=== PATIENT | female | born 1970 | race Caucasian/White ===

== ENCOUNTER 2022-12-22 09:13 | Day surgery (SDC) | payer OTHER ==
[~2022-12-22 09:13] MED LIST: DEXAMETHASONE SOD PHOSPHATE 4 MG/ML 1 ML VIAL IV ONE; HYDROmorphone 0.5 MG/0.5 ML SYRINGE IVP PRN; LACTATED RINGERS 1,000 ML IV SCH; LIDOCAINE 1% (10MG/ML) FOR IV START INTRADERMA PRN; MIDAZOLAM 2 MG/2 ML VIAL IV PRN; ONDANSETRON 4 MG/2 ML VIAL IVP ONE
[2022-12-22] MEDS ORDERED: SCOPOLAMINE 1 MG/72 HR PATCH TRANSDERM ONE (10:22)
[2022-12-22] MEDS ORDERED: DEXAMETHASONE SOD PHOSPHATE 4 MG/ML 1 ML VIAL IVP ONE (10:29)
[2022-12-22] MEDS ORDERED: ONDANSETRON 4 MG/2 ML VIAL IVP ONE (10:29)
[2022-12-22 10:37] LABS: Basophils # (A) 0.1 k/uL (0-0.2); Basophils % (A) 1 %; Eosinophils # (A) 0.4 k/uL (0-0.7); Eosinophils % (A) 3 %; HCT 42.7 % (34.0-46.0); HGB 14.5 gm/dL (11.4-16.0); Lymphocytes # (A) 1.4 k/uL (1.0-4.8); Lymphocytes % (A) 12 %; MCV 82.4 fL (80.0-100.0); Mean Platelet Volume 7.2; Monocytes # (A) 0.6 k/uL (0-1.0); Monocytes % (A) 5 %; Neutrophils # (A) 9.3 k/uL (1.3-7.7); Neutrophils % (A) 79 %; Platelet Count 493 k/uL (150-450); RBC 5.17 m/uL (3.80-5.40); RDW 13.3 % (11.5-15.5); WBC 11.7 k/uL (3.8-10.6)
[2022-12-22 10:46] LABS: ALT 16 U/L (4-34); AST 24 U/L (14-36); African American GFR (CKD) >90 (>60 ml/min/1.73 sqM); Albumin 4.3 g/dL (3.5-5.0); Alkaline Phosphatase 99 U/L (38-126); Anion Gap 12 mmol/L; Blood Urea Nitrogen 14 mg/dL (7-17); Calcium 9.9 mg/dL (8.4-10.2); Carbon Dioxide 20 mmol/L (22-30); Chloride 103 mmol/L (98-107); Glucose 140 mg/dL (74-99); Non-African American GFR(CKD) >90 (>60 ml/min/1.73 sqM); Sodium 135 mmol/L (137-145); Total Bilirubin 0.6 mg/dL (0.2-1.3); Total Protein 7.7 g/dL (6.3-8.2)
[2022-12-22 10:57] LABS: Potassium 4.9 mmol/L (3.5-5.1)
[2022-12-22] MEDS ORDERED: HYDROmorphone (PF) 1 MG/ML ONE (11:53)
[2022-12-22] MEDS ORDERED: PROPOFOL 10 MG/ML 20 ML VIAL IV ONE (11:53)
[2022-12-22] MEDS ORDERED: diphenhydrAMINE 50 MG/ML 1 ML VIAL ONE (11:53)
[2022-12-22] MEDS ORDERED: fentaNYL (PF) 50 MCG/ML 2 ML AMP ONE (11:53)
[2022-12-22] MEDS ORDERED: ceFAZolin 1,000 MG VIAL ONE (11:53)
[2022-12-22] MEDS ORDERED: LIDOCAINE 1% INJ 10MG/ML (20 ML MDV) ONE (11:53)
[2022-12-22] MEDS ORDERED: SODIUM CHLORIDE 0.9% 100 ML BAG ONE (11:53)
[2022-12-22] MEDS ORDERED: SUCCINYLCHOLINE CHLORIDE 200 MG/10 ML VIAL IV ONE ×2 (11:53)
[2022-12-22] MEDS ORDERED: MIDAZOLAM 2 MG/2 ML VIAL ONE (11:53)
[2022-12-22] MEDS ORDERED: SODIUM CHLORIDE 0.9% 100 ML with ceFAZolin 2,000 MG IV ONE ×2 (11:58)
[2022-12-22] MEDS ORDERED: BACITRACIN ZINC 500 UNIT/GM OINT 28.4 GM TUBE TOPICAL ONE (12:43)
[2022-12-22] MEDS ORDERED: LACTATED RINGERS 1,000 ML IV ONE (13:04)
[2022-12-22 13:41] VITALS: TEMP 97.3
[2022-12-22] MEDS ORDERED: droPERidol 5 MG/2 ML VIAL IVP ONE (14:32)
[2022-12-22] MEDS ORDERED: HYDROcodone/APAP 7.5-325MG 1 EACH TAB ONE (16:55)
[2022-12-22] MEDS ORDERED: HYDROcodone/APAP 7.5-325MG 1 EACH TAB PO ONE (16:56)
[2022-12-22 17:15] VITALS: BP 126/83; PULSE 99; RESP 18
--- NOTE | 2022-12-22 20:17 | OP ---
OPERATIVE REPORT DATE OF SERVICE : 12/22/2022 PREOPERATIVE DIAGNOSES: 1. Postoperative infection, right and left reconstructed breasts with open wounds. 2. Personal history of breast cancer. 3. Acquired absence, right and left breasts. POSTOPERATIVE DIAGNOSES: 1. Postoperative infection of reconstructed right and left breasts with open wounds. 2. Breast cancer. 3. Personal history of bilateral mastectomy. OPERATIVE PROCEDURES: 1. Removal of right reconstructed breast tissue wind field manager. 2. Removal of left reconstructed breast tissue wind field manager. 3. Excision, open right and left breast wounds, with complex wound repair, 27 cm length. OPERATIVE INDICATIONS: The patient is a 52-year-old female, who underwent bilateral mastectomy procedures on December 03, 2022. The patient elected to proceed with immediate reconstruction following her mastectomies with insertion of tissue expanders. The patient was seen and evaluated in consultation for these procedures and had a past history of left-sided breast cancer with radiation treatments. She was aware of potential added risk to the surgery due to that history. The patient's postoperative course was soren, and she developed skin changes involving the left breast first and later the right, associated with drainage. She was seen in the office, and cultures were obtained. They have shown gram-negative organisms. The patient has been counseled to undergo removal of her expanders with excision of the wound sites and placement of drains for treatment at this time. She is aware of potential future reconstructive surgical options. She has requested I perform the surgery. OPERATIVE PROCEDURE SUMMARY: The patient was seen and evaluated in the preoperative area, markings were made, procedure was reviewed, and all questions were answered. She was transported to the operative room, where she was placed in supine position. Following induction of general anesthesia, the patient was prepped and draped in usual fashion. Beginning on the right side, the wound site was outlined along the mastectomy scar inferomedially. The mastectomy scar was excised along with the open wound using 10-blade scalpel sending the excised tissue to Pathology. The graft layer was exposed, and the graft was easily from the mastectomy skin flaps. These expanders were secured with suture tabs/sutures, which were released with scissors. The wind field manager and graft material were removed. The cavity had some granulation tissue, but no exudate, and only a small amount of fluid. The cavity was packed open with moistened laparotomy sponges. Attention was turned towards the left side. The wound site and skin necrosis were larger in this area along with exposure of the graft. The wound and mastectomy scar were outlined with a skin marker, and then the tissue was excised sending the excised tissue to Pathology. Again, the graft that had incorporated into the mastectomy skin flaps was easily by digital manipulation. The sutures placed at the suture tabs securing the wind field manager to the chest wall were released with scissors, and the wind field manager and graft material were removed intact. The cavity demonstrated granulation tissue, no exudates, and approximately 50 mL of serous fluid that was cloudy. Both sites were now irrigated with copious amounts of saline using several liters in pulsatile irrigation system. Hemostasis was maintained with cautery on each side. A 19-round Jos drains were inserted in the right and left reconstructed cavities and brought out through separate stab incisions on the right and left anterolateral chest wall and sutured in place with 2-0 Prolene. The drains were cut to appropriate length. The wound sites were now closed approximating the deep dermis using inverted interrupted 4-0 Monocryl followed by closure of superficial dermis and epidermis with molina. The length of the repair on the right side was 14 cm and for the left 13 cm. The surgical oneil were now cleansed with saline and dried, and postoperative bandages were placed using bacitracin ointment, 4 x 4's, Kerlix gauze that was folded over to create large pads followed by ABD pads, all secured with 3M Medipore tape. Drain sponges were placed and secured with tape as well. Drains were connected to close bulb suction and patent. The patient was then awakened from her anesthetic, extubated in the operating room, and transferred to the recovery room in good condition with stable vital signs. ESTIMATED BLOOD LOSS: 75 mL. COMPLICATIONS: There were no complications. MMODL / IJN: [id number] /
== END 2022-12-22 17:23 | disposition home or self-care (01) ==
LOC: OR 09:13
PROVIDERS: ATTEND Plastic Surgery
DX: T85.49XA Other mechanical complication of breast prosthesis and implant, initial encounter (principal); L90.5 Scar conditions and fibrosis of skin; S21.001A Unspecified open wound of right breast, initial encounter; S21.002A Unspecified open wound of left breast, initial encounter; Z85.3 Personal history of malignant neoplasm of breast; Z90.13 Acquired absence of bilateral breasts and nipples; Y83.8 Other surgical procedures as the cause of abnormal reaction of the patient, or of later complication, without mention of misadventure at the time of the procedure
CPT/HCPCS: 11971; 88305; 80053; 85025; 87070; 87205; 87075; 87077; 87186; J2250; J0330; J1200; J1100; J2405; J0690; J2001; J3010; J1170 ×2; J2704; J1790